=== PATIENT | male | born 1935 | race Caucasian/White ===

== ENCOUNTER → 2019-03-15 | Outpatient (CLI) | payer MEDICARE ==
[~2019-03-15] MED LIST: CHOL5000 PO; GLUC1CAP40 PO; MULT-6 PO; OMEG1CAP57 PO; OMEP-110 PO; SIMV20TA3 PO; UBID100T5 PO
== END | disposition home or self-care (01) ==
LOC: CFH 14:35
PROVIDERS: ATTEND Internal Medicine
DX: R05 Cough (principal); Z88.0 Allergy status to penicillin
CPT/HCPCS: 71046

== ENCOUNTER → 2019-05-24 | Outpatient (CLI) | payer MEDICARE | END | disposition home or self-care (01) | LOC: CFH 10:58 | PROVIDERS: ATTEND Internal Medicine | DX: J98.4 Other disorders of lung (principal) | CPT/HCPCS: 71046 ==

== ENCOUNTER 2019-05-25 09:21 | Outpatient (CLI) | payer MEDICARE ==
[2019-05-25] MEDS ORDERED: OMNIPAQUE 350 MG/ML, 75ML BOTTLE ONE (15:00)
== END 2019-05-25 23:59 | disposition home or self-care (01) ==
LOC: CFH 09:21
PROVIDERS: ATTEND Internal Medicine
DX: J98.11 Atelectasis (principal); I51.7 Cardiomegaly; D18.09 Hemangioma of other sites
CPT/HCPCS: 71260; 82565; Q9967

== ENCOUNTER 2021-03-05 08:34 | Outpatient (CLI) | payer MEDICARE ==
[~2021-03-05 08:34] MED LIST changes: +SIMV20TA19 PO; -SIMV20TA3 PO
== END 2021-03-05 23:59 | disposition home or self-care (01) ==
LOC: CFH 08:34
PROVIDERS: ATTEND Internal Medicine
DX: J98.4 Other disorders of lung (principal); R91.8 Other nonspecific abnormal finding of lung field; R05 Cough; M47.814 Spondylosis without myelopathy or radiculopathy, thoracic region
CPT/HCPCS: 71046